=== PATIENT | male | born 1960 | race American Indian/Alaskan Native ===

== ENCOUNTER 2019-04-12 15:14 | Day surgery (SDC) | payer OTHER ==
[~2019-04-12 15:14] MED LIST: NACL 0.9% 1000 ML 1,000 ML IV SCH
[2019-04-12] MEDS ORDERED: DIPRIVAN 10 MG/ML IV ONE ×2 (16:40)
[2019-04-12] MEDS ORDERED: VERSED ONE (16:43)
[2019-04-12] MEDS ORDERED: XYLOCAINE 2% UROJET UR ONE (16:55)
[2019-04-12] MEDS ORDERED: WATER FOR IRRIG STERILE IR ONE (16:56)
[2019-04-12] MEDS ORDERED: XYLOCAINE 2% UROJET ONE (16:56)
[2019-04-12] MEDS ORDERED: XYLOCAINE MPF 2% ONE (17:00)
--- NOTE | 2019-04-12 17:13 | Operative Report ---
Operative Report Operative Report: Date of procedure: 04/12/2019 Procedure: Flexible sigmoidoscopy with hemorrhoidal band ligation Attending physician: Paul Alexander MD Venue Coordinator: Paul Alexander MD Indication: Patient is a 58-year-old male who presents for dilation because of a history of rectal bleeding and rectal pain . A flexible sigmoidoscopy serves to evaluate patients symptoms so that treatment may be directed based on the findings. Consent: Informed consent was obtained after advising the patient and family regarding nature of this procedure, its indications, potential benefits as well as possible complications including but not limited to bleeding perforation and adverse reaction to medication, infection as well as other cardiopulmonary complications. An informed written and verbal consent was then obtained after due opportunity was provided for questions and answers. Monitoring: Patient was monitored continuously with pulse oximetry and electrocardiographic recordings as well as blood pressure recordings. Vital signs remained stable throughout this procedure with no untoward events. Preoperative assessment: Patient was assessed immediately prior to this procedure for capacity to tolerate monitored anesthesia care and moderate sedation as well as general anesthesia. Patient's ASA classification is 2, Mallampati class is 2, Hyomental distance is 3. Instrument: Beverly Bell videocolonoscope. Multiple band ligator: Speedband SuperView Super 7 ([employer]) Medications: Propofol given intravenously in divided doses. For details please refer to anesthesia records. Description of procedure: Patient was placed in the left lateral decubitus position after achieving sedation, a digital rectal examination was performed following which the endoscope was introduced into the anal verge and advanced to the colon. The endoscope was subsequently withdrawn with careful inspection of all mucosal surfaces. Patient tolerated this procedure well and was subsequently taken to the recovery room. The following findings were noted. Findings: On the retroflex view at the anal verge, patient had prominent large friable large internal hemorrhoids. Examination to the transverse colon however did not reveal any other abnormalities .After completing the flexible sigmoidoscopic examination, the video endoscope was preloaded with the multiple band ligator. It was then reintroduced into the rectum after using lidocaine gel to anesthetize the rectum. Following this, in a retroflexed view, multiple bands were applied over the internal hemorrhoids. In all, all 4 bands were applied due to size of internal hemorrhoids. All bands were applied above the dentate line. Patient tolerated the procedure well with no untoward events. Impression: Prominent friable Internal hemorrhoids, status post successful hemorrhoidal band ligation. Plan:Daily sitz baths. High-fiber diet. Patient to apply lidocaine ointment 5% per rectum every 6 hours as needed. Anusol HC suppositories per rectum every night. Patient to use stool softeners as needed. MiraLAX 17 g in 8 ounce glass of water has been prescribed. Tramadol 50 mg every 6 hours as needed for pain. Patient is scheduled for further outpatient follow-up. Patients further instructed that if he has persistent bleeding and or fevers to call the office immediately..
--- NOTE | 2019-04-12 17:14 | Discharge Summary ---
Short Stay Discharge Plan Activity: advance as tolerated Weight Bearing Status: Weight Bear as Tolerated Diet: regular Follow up with: [facility] [Primary Care Provider] - 7 Days
[2019-04-12 17:31] VITALS: BP 139/69
== END 2019-04-12 17:57 | disposition home or self-care (01) ==
LOC: GIO 15:14
PROVIDERS: ATTEND Internal Medicine Gastroenterology
DX: K64.8 Other hemorrhoids (principal); K62.89 Other specified diseases of anus and rectum; I10 Essential (primary) hypertension; J45.909 Unspecified asthma, uncomplicated; Z87.891 Personal history of nicotine dependence; Z79.899 Other long term (current) drug therapy; Z98.890 Other specified postprocedural states
CPT/HCPCS: 45350; J2250; J2704; J7030